=== PATIENT | female | born 1945 | race Caucasian/White ===

== ENCOUNTER 2022-08-18 09:16 | Outpatient (CLI) | payer MEDICARE, BC, SELFPAY ==
[2022-08-18 15:05] LABS: Albumin* 4.3 g/dL (3.3-5.0)
[2022-08-18 15:06] LABS: Chloride* 103 mmol/L (96-114); Potassium* 4.2 mmol/L (3.6-5.1); Sodium* 138 mmol/L (135-149)
[2022-08-18 15:08] LABS: Aspartate Amino Transferase* 27 U/L (12-35); Bilirubin Total* 1.1 mg/dL (0.1-1.5); Blood Urea Nitrogen* 15 mg/dL (7-30); Carbon Dioxide* 28 mmol/L (20-32); Cholesterol* 220 mg/dL (90-199); Creatinine* 0.6 mg/dL (0.5-1.5); Estimated Glomerular Filt Rate 94 ml/min
[2022-08-18 15:09] LABS: Alanine Aminotransferase* 16 U/L (4-35); Alkaline Phosphatase* 64 U/L (40-150); Calcium* 9.4 mg/dL (8.4-10.6); Glucose* 99 mg/dL (60-115); HDL Cholesterol* 74 mg/dL (>=50); LDL Cholesterol Calculated 127 mg/dL (<100); Triglycerides* 93 mg/dL (40-149)
== END 2022-08-18 09:17 | disposition home or self-care (01) ==
PROVIDERS: PCP Physician Assistant Medical; Visit Provider Physician Assistant Medical
DX: Z00.00 Encounter for general adult medical examination without abnormal findings (principal); I10 Essential (primary) hypertension; R79.89 Other specified abnormal findings of blood chemistry; F41.9 Anxiety disorder, unspecified; R19.5 Other fecal abnormalities
CPT/HCPCS: 80053; 80061; 84443

== ENCOUNTER 2022-08-19 09:16 | Outpatient (CLI) | payer MEDICARE, BC, SELFPAY ==
[2022-08-28 01:46] LABS: Ova and Parasite, Fecal Negative (Negative)
== END 2022-08-19 09:17 | disposition home or self-care (01) ==
PROVIDERS: PCP Physician Assistant Medical; Visit Provider Physician Assistant Medical
DX: R19.5 Other fecal abnormalities (principal)
CPT/HCPCS: 87045; 87046; 87177; 87209; 87427

== ENCOUNTER 2023-08-12 13:26 | Outpatient (CLI) | payer MEDICARE, BC, SELFPAY ==
--- NOTE | 2023-08-12 14:00 | CRLHL7_ITS ---
For Patients: As a result of the Century Cures Act, medical imaging exams and procedure reports are released immediately into your electronic medical record. You may view this report before your referring provider. If you have questions, please contact your health care provider. DXA BONE MINERAL DENSITY STUDY Reason for exam: Screening. Current height (in): 61.0 Weight (lb): 103 Menopause age: 50 Ethnicity: White 1. Have you had a previous hip or vertebral fracture? No. 2. Have you had any fractures during your adult life which did not result from significant trauma (e.g., auto accident)? No. 3. Did either of your parents have a hip fracture? Yes. 4. Do you smoke? No. 5. Have you ever taken Glucocorticoids? No. 6. Do you have rheumatoid arthritis? No. 7. Do you have secondary osteoporosis? No. 8. Do you drink 3 or more alcoholic drinks per day? No. 9. Are you being treated for osteoporosis? No. 10. Have you ever taken any of the following medications: Actonel, Evista, Fosamax, Miacalcin, Reclast, Boniva, Forteo, HRT (i.e. estrogen/hormone therapy), Protelos, Prolia, Vitamin D, Calcium, other ??? please specify. ANSWER: Yes, vitamin D and calcium. 11. Do you have any of the following medical conditions: Anorexia or bulimia, asthma or emphysema, end stage renal disease, hyperparathyroidism, any seizure disorders, cancer, inflammatory bowel diseases, hysterectomy, other ??? please specify. ANSWER: Yes, (skin cancer). 12. What was your maximum height (inches)? 62. 13. Do you perform weight bearing exercise regularly? No. 14. Do you regularly consume dairy products? No. 15. Do you drink caffeinated beverages? Yes. 16. At what age did your period start? 15. 17. Are you premenopausal? No. 18. How many full term pregnancies have you had? 2. 19. Have you ever missed your period for more than 6 months in a row (not including or menopause)? No. TECHNIQUE: Bone mineral density study was performed using the [employer]. FINDINGS: The results of the study expressed as bone mineral density (BMD) are as follows: Lumbar spine L1, L2, L4 (L3): BMD: 0.848 g/cm2. T-score: -1.7. Z-score: 0.8. Neck Left: BMD: 0.570 g/cm2. T-score: -2.5. Z-score: -0.4. Right: BMD: 0.568 g/cm2. T-score: -2.5. Z-score: -0.4. Total Left: BMD: 0.635 g/cm2. T-score: -2.5. Z-score: -0.6 Right: BMD: 0.649 g/cm2. T-score: -2.4. Z-score: -0.5 IMPRESSION: Osteoporosis. *Comparison exams done prior to 03/2020 were performed on different unit, [employer]. Angel Serrano M.D. Diagnostic Radiologist [email or web address] DSM/pjt PT/Dictated by: Angel Serrano MD @ 08/17/2023 8:48:00 AM (Electronically Signed)
== END 2023-08-12 13:27 | disposition home or self-care (01) ==
LOC: RAD 13:29
PROVIDERS: PCP Physician Assistant Medical; Visit Provider Physician Assistant Medical
DX: Z13.820 Encounter for screening for osteoporosis (principal); M81.0 Age-related osteoporosis without current pathological fracture; Z78.0 Asymptomatic menopausal state
CPT/HCPCS: 77080

== ENCOUNTER 2024-03-23 13:24 | Outpatient (CLI) | payer MEDICARE, BC, SELFPAY ==
--- OUTSIDE RECORDS SUMMARY | 2024-03-23 13:31 | XMS_ITS | Clinical Summary ---
Author Organization [facility] Address [address] [place] [address] Care Team Providers Care Change Management Director Name Role Phone Kate Mendoza PA-C Primary Care Provider Allergies Active Allergy Reactions Criticality Noted Date Comments Amoxicillin-Pot Clavulanate Diarrhea 08/07/20 15 Medications Medication Sig Dispensed Refills Start Date End Date Status LISINOPRIL POIndications:Hyperten nicolette Take 10 mg by mouth Active LORazepam (ATIVAN) 0.5 MG tablet Take 0.5 mg by mouth as needed for anxiety (very rare pt said) Active Active Problems Problem Noted Date Diagnosed Date Anxiety Family History Medical History Relation Comments Prostate Cancer Brother Pancreatic Cancer Maternal Grandmother Cerebrovascular Disease Mother Colon Cancer No family hx of Relation Status Comments Brother Maternal Grandmother Mother Social History Tobacco Use Types Packs/Day Years Used Date Smoking Tobacco: Never Smokeless Tobacco: Never Alcohol Use Standard Drinks/Week Comments Yes 0 (1 standard drink = 0.6 oz pur e alcohol) occa Adolescent Education Answer Date Record ed Getting School Help Needed Not on file 08/09 Sex and Gender Information Value Date Recorded Sex Assigned at Not on file Gender Identity Not on file Sexual Orientation Not on file Last Filed Vital Signs Vital Sign Reading Time Taken Comments Blood Pressure 120/64 07/29/2022 10:15 AM CDT Pulse 59 07/29/2022 10:15 AM CDT Temperature 36.4 ??C (97.5 ??F) 07/29/2022 9:00 AM CD T Respiratory Rate 15 07/29/2022 10:15 AM CDT Oxygen Saturation 98% 07/29/2022 10:15 AM CDT Inhaled Oxygen Concentration - - Weight 46.7 kg (103 lb) 07/29/2022 8:35 AM CDT Height 154.9 cm (5' 1) 07/29/2022 8:35 AM CDT Body Mass Index 19.46 07/29/2022 8:35 AM CDT Plan of Treatment Health Maintenance Due Date Last Done Comments ADVANCE CARE PLANNING 1945 ANNUAL REVIEW OF HM ORDERS 1945 CT COLONOGRAPHY 1945 DEXA 1945 FIT 1945 FLEX SIG 1945 GLUCOSE 1945 sDNA (Cologuard) 1945 HEPATITIS C SCREENING 1965 LIPID 1987 RSV VACCINE ( & 60+) (1 - 1-dose 60+ series) 2007 DTAP/TDAP/TD IMMUNIZATION (1 - Tdap) 07/18/2009 07/17/2009, 07/17/2009 FALL RISK ASSESSMENT 01/29/2012 MEDICARE ANNUAL WELLNESS VISIT 01/29/2012 ZOSTER IMMUNIZATION (2 of 3) 07/21/2016 05/26/2016 COVID-19 Vaccine ( - season) 2023 08/11/2021 PHQ-2 (once per calendar year) 2023 INFLUENZA VACCINE (Season Ended) 2024 08/20/2022, 07/22/2021, 08/14/2020, Additional history exists COLONOSCOPY 07/29/2025 07/29/2022, 01/2022, 07/29/2022, Additional history exists COLORECTAL CANCER SCREENING 07/29/2025 Pneumococcal Vaccine: 65+ Years Completed 09/01/2017, 10/04/2012 MAMMO SCREENING Discontinued 06/03/2023, 0 05/2022, 05/31/2021, Additional history exists HPV IMMUNIZATION Aged Out No longer e ligible based on patient's age to complete this topic IPV IMMUNIZATION Aged Out No longer e ligible based on patient's age to complete this topic MENINGITIS IMMUNIZATION Aged Out No l onger eligible based on patient's age to complete this topic RSV MONOCLONAL ANTIBODY Aged Out No l onger eligible based on patient's age to complete this topic Procedures Procedure Name Priority Date/Time Associated Diagnosis Comments DANISHA SCREENING BILATERAL W/ ISHMAEL Routine 06/03/2023 10:43 AM CDT Visit for screening mammogram COLONOSCOPY Routine 07/29/2022 8:55 AM CDT from Last 3 Months or Most Recently Relevant to Health Maintenance Results * MA Screen Bilateral w/Ishmael (06/03/2023 10:43 AM CDT) Anatomical Region Laterality Modality Breast Bilateral Mammography Impressions 06/03/2023 10:52 AM CDT IMPRESSION: ACR BI-RADS Category 1: Negative RECOMMENDED FOLLOW-UP: Annual routine screening mammogram The results and recommendations of this examination will be communicated to the patient. Jojo King MD Narrative 06/03/2023 10:52 AM CDT BILATERAL FULL FIELD DIGITAL SCREENING MAMMOGRAM WITH TOMOSYNTHESIS Performed on: 06/03/23 Compared to: 06/02/2022, 05/31/2021, and 08/14/2020 Technique: ??This study was evaluated with the assistance of Computer-Aided Detection. ??Breast Tomosynthesis was used in interpretation. Findings: The breasts are heterogeneously dense, which may obscure small masses. ??There is no radiographic evidence of malignancy. Kate Mendoza PA-C [facility] MAMMOGRAP[facility] ORDERABLES * COLONOSCOPY (07/29/2022 8:55 AM CDT) COLONOSCOPY [facility] Patient Name: Gardenia Griffin ??Procedure Date: 07/29/2022 8:55 AM ? Date of : 1945 ? Admit Type: Outpatient Age: 77 ? Gender: Female Attending MD: TULIO ARVIZU MD Total Sedation Time: 30 min, IT 6 min, WT 24 min. Instrument Name: 250 - Pediatric Colonoscope Procedure: ?Colonoscopy Indications: ?Melena Providers: ?TULIO ARVIZU MD (Doctor) Referring MD: ? Medicines: ?Midazolam 1 mg IV, Fentanyl 100 micrograms IV Complications: ?No immediate complications. Procedure: ?Pre-Anesthesia Assessment: ?- Prior to the procedure, a History and Physical ?was performed, and patient medications and ?allergies were reviewed. The patient's tolerance of ?previous anesthesia was also reviewed. The risks ?and benefits of the procedure and the sedation ?options and risks were discussed with the patient. ?All questions were answered, and informed consent ?was obtained. Prior Anticoagulants: The patient has ?taken no anticoagulant or antiplatelet agents. ASA ?Grade Assessment: II - A patient with mild systemic ?disease. After reviewing the risks and benefits, ?the patient was deemed in satisfactory condition to ?undergo the procedure. ?- Prior to the procedure, a History and Physical ?was performed, and patient medications, allergies ?and sensitivities were reviewed. The patient's ?tolerance of previous anesthesia was reviewed. ?- The risks and benefits of the procedure and the ?sedation options and risks were discussed with the ?patient. All questions were answered and informed ?consent was obtained. ?- Patient identification and proposed procedure ?were verified prior to the procedure by the ?physician. The procedure was verified in the ?endoscopy suite. ?- Pre-procedure physical examination revealed no ?contraindication s to sedation. ?- The heart rate, respiratory rate, oxygen ?saturations, blood pressure, adequacy of pulmonary ?ventilation, and response to care were monitored ?throughout the procedure. ?- The physical status of the patient was ?re-assessed after the procedure. ?After obtaining informed consent, the colonoscope ?was passed under direct vision. Throughout the ?procedure, the patient's blood pressure, pulse, and ?oxygen saturations were monitored continuously. The ?Olympus Pediatric Colonoscope, Model # [id number]-[id number], ?[place] #250, SN# [id number] was introduced through the ?anus and advanced to the terminal ileum. The ?colonoscopy was somewhat difficult due to a ?tortuous colon. Successful completion of the ?procedure was aided by using manual pressure. The ?patient tolerated the procedure well. The quality ?of the bowel preparation was good. ? Findings: ? The perianal and digital rectal examinations were normal. Pertinent ? negatives include normal sphincter tone and no palpable rectal lesions. ? The terminal ileum appeared normal. ? Two flat polyps were found in the transverse colon. The polyps were 8 to ? 10 mm in size. These polyps were removed with a piecemeal technique ? using a cold snare. Resection and retrieval were complete. To prevent ? bleeding after the polypectomy, three hemostatic clips were successfully ? placed. There was no bleeding at the end of the procedure. ? A 3 mm polyp was found in the transverse colon. The polyp was sessile. ? The polyp was removed with a cold biopsy forceps. Resection and ? retrieval were complete. Estimated blood loss was minimal. ? Multiple small and large-mouthed diverticula were found in the sigmoid ? colon. ? The exam was otherwise without abnormality on direct and retroflexion ? views. ? Impression: ? - The examined portion of the ileum was normal. ?- Two 8 to 10 mm polyps in the transverse colon, ?removed piecemeal using a cold snare. Resected and ?retrieved. Clips were placed. ?- One 3 mm polyp in the transverse colon, removed ?with a cold biopsy forceps. Resected and retrieved. ?- Diverticulosis in the sigmoid colon. ?- The examination was otherwise normal on direct ?and retroflexion views. Recommendation: ? - Discharge patient to home. ?- Resume previous diet. ?- No aspirin, ibuprofen, naproxen, or other ?non-steroidal anti-inflammatory drugs for 5 days ?after polyp removal. ?- Await pathology results. ?- Repeat colonoscopy in 3 - 5 years for ?surveillance based on pathology results. ? Procedure Code(s): ? --- Professional --- ? 73186, Colonoscopy, flexible; with removal of tumor(s), polyp(s), or ? other lesion(s) by snare technique ? 86757, 59, Colonoscopy, flexible; with biopsy, single or multiple CPT copyright 2020 [employer]. All rights reserved. The codes documented in this report are preliminary and upon chemical laboratory scientist review may be revised to meet current compliance requirements. TULIO ARVIZU MD 07/29/2022 9:54:27 AM I was physically present for the entire viewing portion of the exam. TULIO ARVIZU MD Number of Addenda: 0 Note Initiated On: 07/29/2022 8:55 AM MRN: ?[id number] Procedure Date: ? 07/29/2022 8:55:40 AM Scope Withdrawal Time: 0 hours 23 minutes 31 seconds Total Procedure Duration: 0 hours 29 minutes 37 seconds Estimated Blood Loss: ? Scope In: 9:10:26 AM Scope Out: 9:40:03 AM RADIOLOGY RESULTS 07/29/2022 8:55 AM CDT Tulio Arvizu MD PROCEDURES RADIOLOGY RESULTS from Last 3 Months or Most Recently Relevant to Health Maintenance Care Teams Change Management Director Relationship Specialty Start Date End Date Kate Mendoza PA-C [facility] [address] [place] [address] PCP - General Physician Commercial Escrow Assistant 05/31/21
--- OUTSIDE RECORDS SUMMARY | 2024-03-23 13:31 | XMS_ITS | Continuity of Care Document ---
Author Organization [facility] Address [address] [place] [address] Phone Care Team Providers Care Tool Die Maker Name Role Phone Matthew MCKEON, Lizandro Unavailable Unavailable Allergies, Adverse Reactions, Alerts Substance Reaction Status Criticality POTASSIUM CLAVULANATE Active No Inf ormation AMOXICILLIN TRIHYDRATE Active No In formation Medications Medication Instructions Dosage Effective Dates (start - stop) Status Comments atorvastatin 10 mg tablet - Active lisinopril 10 mg tablet take 1 tablet by oral route every day 10 MG - Active lorazepam 0.5 mg tablet take 2 tablet by oral route 3 times every day as needed 1 MG - Active vitamin D - No Longer Active Procedures Procedure Date Scan Computerized; Retina New Patient E/M Moderate MDM Advance Directives Directive Yes / No Effective Date File Name No Information Encounters Encounter Description Practice Location Reason(s) For Visit Diagnoses Date Provider Providers Copied on Encounter New Patient E/M Moderate MDM [facility], [address] [place], [place], [id number], tel:[phone] [place] blurry vision (chief complaint) Nexdtve age-related mclr degn, bilateral, intermed dry stagePresence of pseudophakia 3 Matthew Bone. [address], [place], [id number] , . tel:[phone] Referring Provider: Lizandro Kelsey, [address] [place], [address] . tel:[phone] [facility], [address] [place], [place], [id number], tel:[phone] [place] blurry vision (chief complaint) Nexdtve age-related mclr degn, bilateral, intermed dry stageCataract [address] [place], [place], [id number] , [place]. tel: [facility], [address] [place], [place], [id number], tel:[phone] [place] dry AMD (chief complaint) Nexdtve age-related mclr degn, bilateral, intermed dry stageCataract 7 Matthew Edward. [address], [place], [id number] , [place]. tel: Family History Family Member Type Diagnosis Age At Onset Brother Problem (finding) degenerative disorder o f macula Mother Problem (finding) degenerative disorder o f macula Mother Problem (finding) stroke Payers Payer name Insurance type Covered republican ID Authoriza tion(s) Medicare [place] [id number] [facility] [id number] Social History Type Description Quantity Date Captured Comments Alcohol Use Details Caffeine Use Details 3 cups per day Tobacco Use Status No Information Smoking Status Never smoker Non-Smoking Tobacco Use Details : No Details Available : No Details Available Sex Female Chief Complaint And Reason For Visit From encounter dated '12/12/2022 09:55'. blurry vision (chief complaint) Reason For Referral Reason For Referral No Information History Of Present Illness Encounter Date Complaint History Of Prese nt Illness blurry vision The 77 year old female presents for evaluation of AMD OU an PVD OD. Pt states she has blurry vision OU. Pt states she has floaters OU x several years. Pt states she has ocular migraines 3 times a week. Pt denies any flashes or pain OU. blurry vision The 73 year old female presents for evaluation of blurry vision in the right > left. Patient states that her OD vision has become blurrier at distance and close x 6 months. OS vision remains stable at distance and close. Patient notes that she saw her it generalist in June and was informed that she had cataracts OD>OS. Patient reports that she has had occasional OU floaters for years. Patient denies flashes,distortion, or pain OU. 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 Pt states she was told 2 years ago that she had the condition. Pt says she occasionally experiences slight difficulty reading but most of the time no complaints. Pt is not aware of any distortion. No flashes OU. Pt says she has floaters OU. Pt also reports getting ocular migraines. Functional Status Date Functional Assessmen t No Information Instructions Date Instruction Additional Infor bailee Impression/Plan - Ex am/OCT reveals no evidence of CNV. Discussed diagnosis of Dry AMD. Informed patient of risk for progression to Wet AMD. Recommend AREDS formula supplement and amsler grid monitoring. Advised patient to contact us immediately for any new metamorphopsia or decrease in vision. Follow up with Dr. Diaz.Return PRN, OCT OU Related to Nexdtve age-related mclr degn, bilateral, intermed dry stage Impression/Plan - PC IOL in good position OU. Related to Presence of pseudophakia Impression/Plan - Ex am and OCT continues to reveal no evidence of CNV. Discussed diagnosis of Dry AMD. Informed patient of risk for progression to Wet AMD. Recommend AREDS formula supplement and amsler grid monitoring. Advised patient to contact us immediately for any new metamorphopsia or decrease in vision. Follow up with Dr. Diaz.Return PRN, OCT OU Related to Nexdtve age-related mclr degn, bilateral, intermed dry stage Impression/Plan - OD >OS. Recommend evaluation with Cataract Specialist Related to Cataract Impression/Plan - Ex am and OCT reveal no evidence of CNV. Discussed diagnosis of Dry AMD. Informed patient of risk for progression to Wet AMD. Recommend AREDS formula supplement and amsler grid monitoring. Advised patient to contact us immediately for any new metamorphopsia or decrease in vision. Follow up with Dr. Diaz.Return PRN, OCT OU Related to Nexdtve age-related mclr degn, bilateral, intermed dry stage Impression/Plan - Observe. Relat ed to Cataract Assessments Type Assessment Date assessment Nexdtve age-related mclr degn, b ilateral, intermed dry stage impression Nexdtve age-related mclr degn, bilateral, intermed dry stage: H35.3132. OU assessment Presence of pseudophakia 2022 impression Presence of pseudophakia: Z96.1. Bilateral Patient Care Teams Name Effective Dates (start - stop) Status Members No Information
--- OUTSIDE RECORDS SUMMARY | 2024-03-23 13:31 | XMS_ITS | Continuity of Care Document ---
Author Organization [facility] Address [address] [place] [address] Phone Care Team Providers Care Forcer Maker Name Role Phone Will Epi BERGMAN Unavailable Unavailabl e Allergies, Adverse Reactions, Alerts Substance Reaction Status Criticality POTASSIUM CLAVULANATE Active No Inf ormation AMOXICILLIN TRIHYDRATE Active No In formation Medications Medication Instructions Dosage Effective Dates (start - stop) Status Comments medical cannabis ORAL as needed - Acti ve lisinopril 10 mg tablet take 1 tablet by oral route every day 10 MG - Active hydrochlorothiazide 12.5 mg tablet take 1 tablet by oral route every day 12.5 MG - Active Procedures Procedure Date OFFICE/OUTPATIENT VISIT, EST ROUTINE BLOOD DRAW Drug Urine Toxology With Chromatography OFFICE/OUTPATIENT VISIT, [facility] Substance Interv 15-30mn Advance Directives Directive Yes / No Effective Date File Name No Information Encounters Encounter Description Practice Location Reason(s) For Visit Diagnoses Date Provider Providers Copied on Encounter [facility], [address] [place], [place], [id number] , [place] tel:[phone] [facility] [place] No Information 2 Will Epi. [address] [facility] [address] [place], [place], [id number] , [place]. tel:[phone] OFFICE/OUTPA TIENT VISIT, EST [facility], [address] [facility] [place], [id number] , [place] tel:[phone] [facility] Neck Pain (chief complaint) DystoniaChronic pain syndromeOther termite technician (current) drug therapy 1 Carmita García. [address], [place], [place], [id number] , [place]. tel:[phone] Referring Provider: Kate Mendoza, [facility] [address] [place] [address], [address]. [phone] [facility], [address] [place] [address], [id number] , [place] tel:[phone] [facility] No Information 1 Carmita García. [address], [place], [place], [id number] , [place]. [phone] Referring Provider: Epi Kelsey, [address] [place], [address]. [phone] OFFICE/OUTPA TIENT VISIT, [facility], [address] [place], [place], [id number] , [place] tel:[phone] [facility] Neck Pain (chief complaint) DystoniaChronic pain syndromeEncounter for screening for other disorderEncounter for screening, unspecifiedOther termite technician (current) drug therapy 1 Carmita García. [address], [place], [place], [id number] , [place]. tel:[phone] Referring Provider: Kate Mendoza, [facility] [address] [place] [address], [address]. [phone] Family History Family Member Type Diagnosis Age At Onset No Information Payers Payer name Insurance type Covered alliance party ID Authormarisa pratik(s) Medicare MB [id number] Blue Cross Supplement BL [id number] Social History Type Description Quantity Date Captured Comments Sex Female Smoking Status No Information Chief Complaint And Reason For Visit No Information Reason For Referral Reason For Referral No Information Plan Of Treatment Date Type Action Status Goal Height. Due on d ue Goal Update Social History. Due o n due Goal Medication Reconciliation. D ue on due Goal Tobacco Use. Due on due Goal PHQ-9. Due on du e Goal Review Allergy List. Due on due Goal Weight. Due on d ue Goal Height. Due on d ue Goal Update Social History. Due o n due Goal Medication Reconciliation. D ue on due Goal Tobacco Use. Due on due Goal PHQ-9. Due on du e Goal Review Allergy List. Due on due Goal Weight. Due on d ue Goal Height. Due on d ue Goal Update Social History. Due o n due Goal Medication Reconciliation. D ue on due Goal Tobacco Use. Due on due Goal PHQ-9. Due on du e Goal Review Allergy List. Due on due Goal Weight. Due on d ue History Of Present Illness Encounter Date Complaint History Of Prese nt Illness Neck Pain (comments) Gardenia is here for a followup after initial consult. Neck pain persists. She would like to pursue medical cannabis certification. She s leaving for [place] in July. She and her visit there often in the winter.No other concerns today. Neck Pain The severity of the problem is 7. Duration: chronic. The problem has not changed. The frequency of pain is constant. Location of pain is bilateral posterior neck. The patient describes the pain as Aching. Aggravating factors include bending and housework. Relieving factors include rest, sitting and supine. Pertinent negatives include bladder incontinence. Neck Pain The severity of the problem is 8. Duration: chronic. The frequency of pain is constant. Location of pain is right posterior neck. The patient describes the pain as Aching and pulling. Aggravating factors include running, standing, walking and housework. Relieving factors include heating pad, ice, sitting and supine. Pertinent negatives include bladder incontinence. Neck Pain (comments) Gardenia is here for an initial consult and presents with neck pain and spasticity R>L, initial onset 2 weeks after getting hit on the head by a heavy chair folding, incident 18 years ago. 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 The pain fluctuates with intermittent spasms/flares. She describes the pain as pulling. She also reports headaches and neck spasms . she has significantly decreased ROM of neckReferred by PCP. Most recent cervical MRI was completed at [place], she has the written report at home.Treatment Tried:botox at [facility] - no helpful.OTC pain meds - not helpful.baclofenPt goal: [facility] to certify for medical cannabis. She is not good at taking daily pills and would like to avoid. Functional Status Date Functional Assessmen t No Information Instructions Date Instruction Additional Infor mation No Information Assessments Type Assessment Date No Information Patient Care Teams Name Effective Dates (start - stop) Status Members No Information
--- OUTSIDE RECORDS SUMMARY | 2024-03-23 13:31 | XMS_ITS | Referral Summary ---
Author Organization [facility] Address [address] [place] [address]. [place] [address] Care Team Providers Care Pocket Machine Operator Name Role Phone Kate Mendoza PA-C Primary [...] Problems Problem Noted Date Diagnosed Date Anxiety Social History Tobacco Use Types Packs/Day Years [...] 07/29/2022 8:35 AM CDT Plan of Treatment Not on file Procedures Procedure Name Priority Date/Time Associated Diagnosis Comments MA SCREENING BILATERAL W/ ISHMAEL Routine 06/03/2023 10:43 [...] radiographic evidence of malignancy. Kate Mendoza PA-C [facility] MAMMOGRAPHY ORDERABLES * COLONOSCOPY (07/29/2022 8:55 AM CDT) COLONOSCOPY [facility] Patient Name: Gardenia Griffin ??Procedure Date: [...] continuously. The ?Olympus Pediatric Colonoscope, Model # [id number]-YJ547A, ?Endora #250, SN# [id number] was introduced through the ?anus and advanced [...] Procedure Code(s): ? --- Professional --- ? 29857, Colonoscopy, flexible; with removal of tumor(s), polyp(s), or ? other lesion(s) by snare technique ? 43993, 59, Colonoscopy, flexible; with biopsy, single or multiple CPT copyright 2020 [employer]. All rights reserved. The codes documented in this report are preliminary and upon denture packer review may be revised to meet current compliance requirements. TULIO ARVIZU MD 07/29/2022 9:54:27 AM I was physically present for the entire viewing portion of the exam. TULIO ARVIZU MD Number of Addenda: 0 Note Initiated On: 07/29/2022 8:55 AM MRN: ?[id number] Procedure Date: ? 07/29/2022 8:55:40 AM Scope Withdrawal Time: 0 hours 23 minutes 31 seconds Total Procedure Duration: 0 hours 29 minutes 37 seconds Estimated Blood Loss: ? Scope In: 9:10:26 AM Scope Out: 9:40:03 AM RADIOLOGY RESULTS 07/29/2022 8:55 AM CDT Tulio Arvizu MD PROCEDURES RADIOLOGY RESULTS from Last 3 Months or Most Recently Relevant to Health Maintenance Care Teams Pocket Machine Operator Relationship Specialty Start Date End Date Kate Mendoza PA-C [facility] [address] [place], [place] [id number] PCP - General Physician Parking Cashier 05/31/21
--- OUTSIDE RECORDS SUMMARY | 2024-03-23 13:31 | XMS_ITS | Clinical Summary ---
Author Organization [facility] Address [place], [place] [address] Care Team Providers Care Basket Hand Braider Name Role Phone Yosvany Hager MD Primary Care Provider Social History Tobacco Use Types Packs/Day Years Used Date Smoking Tobacco: Never Assessed Sex and Gender Information Value Date Recorded Sex Assigned at Not on file Gender Identity Not on file Sexual Orientation Not on file Plan of Treatment Not on file Care Teams Basket Hand Braider Relationship Specialty Start Date End Date Yosvany Hager MD PCP - General Family Practice 04/17/15
== END 2024-03-23 13:25 | disposition home or self-care (01) ==
PROVIDERS: PCP Physician Assistant Medical; Visit Provider Physician Assistant Medical
DX: Z00.00 Encounter for general adult medical examination without abnormal findings (principal); E78.5 Hyperlipidemia, unspecified; I10 Essential (primary) hypertension; R79.89 Other specified abnormal findings of blood chemistry; F41.9 Anxiety disorder, unspecified; R73.09 Other abnormal glucose
CPT/HCPCS: 80053; 80061; 84443

== ENCOUNTER 2024-07-25 12:16 | Outpatient (CLI) | payer MEDICARE, BC, SELFPAY ==
--- OUTSIDE RECORDS SUMMARY | 2024-07-25 12:18 | XMS_ITS | Continuity of Care Document ---
Author Organization [facility] Address [address] [place] [address] Phone Care Team Providers Care Facility Mechanic Name Role Phone Matthew MCKEON, Lizandro Unavailable [...] Patient E/M Moderate MDM [facility], [address] [place], [place], [id number], [phone] [place] blurry vision (chief complaint) Nexdtve age-related mclr degn, bilateral, intermed dry stagePresence of pseudophakia 3 Matthew Bone. [address] [place], [place], [id number] , . tel:[phone] Referring Provider: Lizandro Kelsey, [address] [place], [address] . tel:[phone] [facility], [address] [place], [place], [id number], tel:[phone] [place] blurry vision (chief complaint) Nexdtve age-related mclr degn, bilateral, intermed dry stageCataract 9 Matthew [place]. [address] [place], [place], [id number] , [place]. tel: [facility], [address] [place], [place], [id number], tel:[phone] [place] dry AMD (chief complaint) Nexdtve age-related mclr degn, bilateral, intermed dry stageCataract 7 [place] Edward. [address] [place], [place], [address] , [place]. tel: Family History Family Member Type Diagnosis Age At Onset Brother Problem (finding) degenerative disorder o f macula Mother Problem (finding) degenerative disorder o f macula Mother Problem (finding) stroke Payers Payer name Insurance type Covered alliance party ID Authoriza tion(s) Medicare [place] MB [id number] [facility] [id number] Social History Type Description Quantity Date Captured [...] close. Patient notes that she saw her general internal medicine physician in June and was informed that she [...]
--- OUTSIDE RECORDS SUMMARY | 2024-07-25 12:18 | XMS_ITS | Continuity of Care Document ---
Author Organization [facility] Address [address] [place] [address] Phone Care Team Providers Care Client Solutions Specialist Name Role Phone Will Epi BERGMAN Unavailable [...] Drug Urine Toxology With Chromatography OFFICE/OUTPATIENT VISIT, [facility] Substance Interv 15-30mn Advance Directives Directive Yes / No Effective Date File Name No Information Encounters Encounter Description Practice Location Reason(s) For Visit Diagnoses Date Provider Providers Copied on Encounter [facility], [address] [place], [place], [id number] , [place] tel:[phone] [facility] [place] No Information 2 Will Epi. [address] [facility] [address] [place], [place], [id number] , [place]. tel:[phone] OFFICE/OUTPA TIENT VISIT, EST [facility], [address] [facility] [place], [id number] , [place] tel:[phone] [facility] Neck Pain (chief complaint) DystoniaChronic pain syndromeOther terminal block assembler (current) drug therapy 1 Carmita García. [address], [place], [place], [id number] , [place]. tel:[phone] Referring Provider: Kate Mendoza, [facility] [address] [place] [address], [address]. [phone] [facility], [address] [place] [address], [id number] , [place] tel:[phone] [facility] No Information 1 Carmita García. [address], [place], [place], [id number] , [place]. [phone] Referring Provider: Epi Kelsey, [address] [place], [address]. [phone] OFFICE/OUTPA TIENT VISIT, [facility], [address] [place], [place], [id number] , [place] tel:[phone] [facility] Neck Pain (chief complaint) DystoniaChronic pain syndromeEncounter for screening for other disorderEncounter for screening, unspecifiedOther terminal block assembler (current) drug therapy 1 Carmita García. [address], [place], [place], [id number] , [place]. tel:[phone] Referring Provider: Kate Mendoza, [facility] [address] [place] [address], [address]. [phone] Family History Family Member Type Diagnosis Age At Onset No Information Payers Payer name Insurance type Covered constitution party ID Authormarisa pratik(s) Medicare MB [id number] Blue Cross Supplement BL [id number] Social History Type Description Quantity Date Captured [...] medical cannabis certification. She s leaving for [place] in July. She and her visit there [...] Most recent cervical MRI was completed at [place], she has the written report at home.Treatment Tried:botox at [facility] - no helpful.OTC pain meds [...]
--- OUTSIDE RECORDS SUMMARY | 2024-07-25 12:19 | XMS_ITS | Clinical Summary ---
Author Organization [employer] [facility] Address [place], [place] [address] Care Team Providers Care Filter Cleaner Name Role Phone Yosvany Hager MD Primary Care Provider Social History Tobacco Use Types Packs/Day Years Used Date Smoking Tobacco: Never Assessed Sex and Gender Information Value Date Recorded Sex Assigned at Not on file Gender Identity Not on file Sexual Orientation Not on file Plan of Treatment Not on file Care Teams Filter Cleaner Relationship Specialty Start Date End Date Yosvany Hager MD PCP - General Family Practice 04/17/15
--- OUTSIDE RECORDS SUMMARY | 2024-07-25 12:19 | XMS_ITS | Encounter Summary ---
Author Organization [facility] Address [address] [place] [address] Care Team Providers Care Relay Checker Name Role Phone Kate Mendoza PA-C Primary Care Provider Reason for Referral * Diagnostic Imaging Mammo (Routine) - Pending Review Specialty Diagnoses / Procedures Referred By Erwin fry Referred To Contact Radiology. Diagnoses Breast cancer screening by mammogram Procedures MA Screen Bilateral w/Kate Jimenez PA-C [facility] [address] [place] [address] Referral ID Status Reason Start Date Expiration Date V isits Requested Visits Authorized [id number] Pending Review 05/02/2024 05/02/2025 1 1 Reason for Visit * Diagnostic Imaging Mammo (Routine) - Pending Review Specialty Diagnoses / Procedures Referred By Erwin fry Referred To Contact Radiology. Diagnoses Breast cancer screening by mammogram Procedures MA Screen Bilateral w/Kate Jimenez PA-C [facility] [address], [place] [address] Referral ID Status Reason Start Date Expiration Date V isits Requested Visits Authorized [id number] Pending Review 05/02/2024 05/02/2025 1 1 Encounter Details Date Type Department Care Team (Late st Contact Info) Description 06/07/2024 10:05 AM CDT - 06/07/2024 11:59 PM CDT Hospital Encounter [facility] [place] [address], [address] [place] [address] Kate Mendoza PA-C [facility] [address] [place] [address] Breast cancer screening by mammogram Discharge Disposition: Home or Self Care Social History Tobacco Use Types Packs/Day Years [...] on file Sexual Orientation Not on file documented as of this encounter Medications at Time of Discharge Medication Sig Dispensed Refills Start Date End Date LISINOPRIL POIndications:Hypertensio n Take 10 mg by mouth LORazepam (ATIVAN) 0.5 MG tablet Take 0.5 mg by mouth as needed for anxiety (very rare pt said) documented as of this encounter Plan of Treatment Not on file documented as of this encounter Procedures Procedure Name Priority Date/Time Associated Diagnosis Comments MA SCREENING BILATERAL W/ ISHMAEL Routine 06/07/2024 10:46 AM CDT Breast cancer screening by mammogram documented in this encounter Results * MA Screen Bilateral w/Ishmael (06/07/2024 10:46 AM CDT) Anatomical Region Laterality Modality Breast Bilateral Mammography Impressions 06/07/2024 2:13 PM CDT IMPRESSION: ACR BI-RADS Category 1: Negative BREAST CANCER SCREENING RECOMMENDATION: Routine yearly mammography beginning at age 40 or as discussed with your provider. The results and recommendations of this examination will be communicated to the patient. Jojo King MD Narrative 06/07/2024 2:13 PM CDT BILATERAL FULL FIELD DIGITAL SCREENING MAMMOGRAM WITH TOMOSYNTHESIS Performed on: 06/07/24 Compared to: 06/03/2023 and 05/31/2021 Technique: ??This study was evaluated with the assistance of Computer-Aided Detection. ??Breast Tomosynthesis was used in interpretation. Findings: The breasts are heterogeneously dense, which may obscure small masses. ??There is no radiographic evidence of malignancy. Kate Mendoza PA-C [facility] MAMMOGRAPHY ORDERABLES documented in this encounter Visit Diagnoses Diagnosis Breast cancer screening by mammogram documented in this encounter Care Teams Relay Checker Relationship Specialty Start Date End Date Kate Mendoza PA-C [facility] [address] [place] [address] PCP - General Physician Auto Body Builder Apprentice 05/31/21 documented as of this encounter
--- OUTSIDE RECORDS SUMMARY | 2024-07-25 12:19 | XMS_ITS | Clinical Summary ---
Author Organization [facility] Address [address] [place] [address]. [place] [address] Care Team Providers Care Order Selector Name Role Phone Kate Mendoza PA-C Primary [...] Problems Problem Noted Date Diagnosed Date Anxiety Encounters Date Type Department Care Team Description 06/07/2024 10:05 AM CDT - 06/07/2024 11:59 PM CDT Hospital Encounter [facility] [address] [facility], [address] [place] [phone] Kate Mendoza PA-C Breast cancer screening by mammogram Discharge Disposition: Home or Self Care 06/07/2024 Travel from Last 3 Months Family History Medical History Relation Comments Prostate [...] 1945 HEPATITIS C SCREENING 1965 LIPID 1987 DTAP/TDAP/TD IMMUNIZATION (1 - Tdap) 07/18/2009 07/17/2009 FALL RISK ASSESSMENT 01/29/2012 MEDICARE ANNUAL WELLNESS VISIT 01/29/2012 ZOSTER IMMUNIZATION (2 of 3) 07/21/2016 05/26/2016 RSV VACCINE (1 - 1-dose 75+ series) 2022 PHQ-2 (once per calendar year) 2023 COVID-19 Vaccine (2 - 2023- season) 2024 08/11/2021 INFLUENZA VACCINE (#1) 2024 , 08/20/2022, 07/22/2021, Additional history exists COLONOSCOPY 07/29/2025 07/29/2022, 01/2022, 07/29/2022, Additional history exists COLORECTAL CANCER SCREENING 07/29/2025 Pneumococcal Vaccine: 65+ Years Completed 09/01/2017, 10/04/2012 MAMMO SCREENING Discontinued 06/07/2024, 06/2023, 06/02/2022, Additional history exists HPV IMMUNIZATION Aged Out [...] AM CDT Breast cancer screening by mammogram COLONOSCOPY Routine 07/29/2022 8:55 AM CDT from Last 3 Months or Most Recently Relevant to Health Maintenance Results * MA Screen Bilateral w/Ishmael (06/07/2024 [...] ORDERABLES * COLONOSCOPY (07/29/2022 8:55 AM CDT) Pathologist [facility] Patient Name: Gardenia Griffin ??Procedure Date: 07/29/2022 [...] continuously. The ?Olympus Pediatric Colonoscope, Model # [id number]-UC081D, ?Endora #250, SN# [id number] was introduced through the ?anus and advanced [...] Procedure Code(s): ? --- Professional --- ? 07864, Colonoscopy, flexible; with removal of tumor(s), polyp(s), or ? other lesion(s) by snare technique ? 82164, 59, Colonoscopy, flexible; with biopsy, single or multiple CPT copyright 2020 [place] [employer]. All rights reserved. The codes documented in this report are preliminary and upon attending urologist review may be revised to meet current compliance requirements. TULIO ARVIZU MD 07/29/2022 9:54:27 AM I was physically present for the entire viewing portion of the exam. TULIO ARVIZU MD Number of Addenda: 0 Note Initiated On: 07/29/2022 8:55 AM MRN: ?[id number] Procedure Date: ? 07/29/2022 8:55:40 AM Scope Withdrawal Time: 0 hours 23 minutes 31 seconds Total Procedure Duration: 0 hours 29 minutes 37 seconds Estimated Blood Loss: ? Scope In: 9:10:26 AM Scope Out: 9:40:03 AM RADIOLOGY RESULTS 07/29/2022 8:55 AM CDT Tulio Arvizu MD PROCEDURES RADIOLOGY RESULTS from Last 3 Months or Most Recently Relevant to Health Maintenance Care Teams Order Selector Relationship Specialty Start Date End Date Kate Mendoza PA-C [facility] [address] [place] [address] PCP - General Physician Shake Sawyer 05/31/21
--- OUTSIDE RECORDS SUMMARY | 2024-07-25 12:19 | XMS_ITS | Encounter Summary ---
Author Organization [facility] Address [address] [place] [address] Care Team Providers Care Senior Engineering Associate Name Role Phone Kate Mendoza PA-C Primary Care Provider Encounter Details Date Type Department Care Team (Latest Contact Info) Description 06/07/2024 Travel Social History Tobacco Use Types Packs/Day Years [...] on file documented as of this encounter Plan of Treatment Not on file documented as of this encounter Visit Diagnoses Not on filedocumented in this encounter Care Teams Senior Engineering Associate Relationship Specialty Start Date End Date Kate Mendoza PA-C [facility] [address] [place] [address] PCP - General Physician Anesthesia Tech 05/31/21 documented as of this encounter
--- OUTSIDE RECORDS SUMMARY | 2024-07-25 12:19 | XMS_ITS | Referral Summary ---
Author Organization [facility] Address [address] [place] [address] Care Team Providers Care Supervisor [employer]ran[employer] Name Role Phone Kate Mendoza PA-C Primary Care Provider Encounters Date Type Department Care Team Description 06/07/2024 Travel 06/07/2024 10:05 AM CDT - 06/07/2024 11:59 PM CDT Hospital Encounter [facility] [address], [address] [place] [id number] Kate Mendoza PA-C Breast cancer screening by mammogram Discharge Disposition: Home or Self Care from Last 3 Months Allergies Active Allergy Reactions Criticality Noted Date [...] ORDERABLES * COLONOSCOPY (07/29/2022 8:55 AM CDT) [facility] Patient Name: Gardenia Griffin ??Procedure Date: [...] and ?oxygen saturations were monitored continuously. The ?Retevo Pediatric Colonoscope, Model # [id number], ?[place] #250, SN# [id number] was introduced through the ?anus and advanced [...] Procedure Code(s): ? --- Professional --- ? 00233, Colonoscopy, flexible; with removal of tumor(s), polyp(s), or ? other lesion(s) by snare technique ? 34700, 59, Colonoscopy, flexible; with biopsy, single or multiple CPT copyright 2020 [employer]. All rights reserved. The codes documented in this report are preliminary and upon wire wrapper machine operator review may be revised to meet current compliance requirements. TULIO ARVIZU MD 07/29/2022 9:54:27 AM I was physically present for the entire viewing portion of the exam. TULIO ARVIZU MD Number of Addenda: 0 Note Initiated On: 07/29/2022 8:55 AM MRN: ?[id number] Procedure Date: ? 07/29/2022 8:55:40 AM Scope Withdrawal Time: 0 hours 23 minutes 31 seconds Total Procedure Duration: 0 hours 29 minutes 37 seconds Estimated Blood Loss: ? Scope In: 9:10:26 AM Scope Out: 9:40:03 AM RADIOLOGY RESULTS 07/29/2022 8:55 AM CDT Tulio Arvizu MD PROCEDURES RADIOLOGY RESULTS from Last 3 Months or Most Recently Relevant to Health Maintenance Care Teams Supervisor [employer]ranium Processing Relationship Specialty Start Date End Date Kate Mendoza PA-C [facility] [address] [place] [address] PCP - General Physician Lip Cutter 05/31/21
== END 2024-07-25 12:17 | disposition home or self-care (01) ==
LOC: LKVREF 12:17
PROVIDERS: PCP Physician Assistant Medical; Visit Provider Physician Assistant Medical
DX: M81.0 Age-related osteoporosis without current pathological fracture (principal)
CPT/HCPCS: 82306

== ENCOUNTER 2024-10-12 09:57 | Outpatient (CLI) | payer MEDICARE, BC, SELFPAY | END 2024-10-12 09:58 | disposition home or self-care (01) | LOC: NFLDREF 10-13 05:13 | PROVIDERS: PCP Physician Assistant Medical; Referring Provider Physician Assistant Medical; Visit Provider Physician Assistant Medical | DX: E55.9 Vitamin D deficiency, unspecified (principal) | CPT/HCPCS: 82306 ==

== ENCOUNTER 2025-06-19 08:52 | Outpatient (CLI) | payer MEDICARE, BC, SELFPAY | END 2025-06-19 08:53 | disposition home or self-care (01) | LOC: NFLDREF 06-20 18:23 | PROVIDERS: PCP Physician Assistant Medical; Referring Provider Physician Assistant Medical; Visit Provider Physician Assistant Medical | DX: E78.5 Hyperlipidemia, unspecified (principal); R79.89 Other specified abnormal findings of blood chemistry; E55.9 Vitamin D deficiency, unspecified; R73.09 Other abnormal glucose | CPT/HCPCS: 80053; 80061; 82306; 82728 ==

== ENCOUNTER 2025-08-24 09:01 | Outpatient (CLI) | payer MEDICARE, BC, SELFPAY | END 2025-08-24 09:02 | disposition home or self-care (01) | LOC: LKVREF 09:01 | PROVIDERS: PCP Physician Assistant Medical; Visit Provider Physician Assistant Medical | DX: E55.9 Vitamin D deficiency, unspecified (principal); I10 Essential (primary) hypertension | CPT/HCPCS: 82306 ==